=== PATIENT | female | born 1980 | race African-American/Black ===

== ENCOUNTER 2018-02-22 10:54 | Emergency (ER) | payer SELFPAY ==
[~2018-02-22] VITALS: Ht 170.2 cm; Wt 105.2 kg
[~2018-02-22 10:54] MED LIST: ACYC200C4 PO; ALBU2.5V14 IH; IPRA14.7 IH
[2018-02-22 11:10] VITALS: BP 149/75
--- NOTE | 2018-02-22 11:33 | PHYS DOC ---
Past Medical History Past Medical History: No Pertinent History Additional Past Medical Histor: genital herpes Past Surgical History: Appendectomy Additional Past Surgical Histo: tubal ligation Alcohol Use: None Drug Use: None Adult General Chief Complaint Chief Complaint: BACK PAIN OR INJURY HPI HPI Patient is a 37 year old female who presents to the emergency room with complaints of mid left back pain after lifting a 22 pound turkey this morning. Patient states she felt a sharp pull in her back at the time. Since then she reports increased pain with respirations, palpation, and movement. She denies any shortness of breath, or recent injury to the area. Patient denies any chest pain numbness and tingling in extremities, or weakness of extremities. States that she took 2 naproxen at approximately 9 AM for relief of her discomfort without any improvement of her symptoms. Patient currently reports her pain is 9 out of 10 on the pain scale. Review of Systems Review of Systems Constitutional: Denies fever or chills [] Respiratory: Denies cough or shortness of breath; see HPI [] Cardiovascular: No additional information not addressed in HPI [] : Denies dysuria or hematuria [] Musculoskeletal: See history of present illness Integument: Denies rash or skin lesions [] Neurologic: Denies headache, focal weakness or sensory changes [] All other systems were reviewed and found to be within normal limits, except as documented in this note. Allergies Allergies Allergies Coded Allergies Type Severity Reaction Last Updated Verified doxycycline Allergy Intermediate N/V 05/24/15 Yes Physical Exam Physical Exam Constitutional: Well developed, well nourished, no acute distress, non-toxic appearance, obese. [] HENT: Normocephalic, atraumatic, bilateral external ears normal, nose normal. [] Eyes: PERRLA, conjunctiva normal, no discharge. [] Lungs & Thorax: Bilateral breath sounds clear to auscultation [] Skin: Warm, dry, no erythema, no rash. [] Back: No bony tenderness; left paraspinal thoracic tenderness to palpation Neurologic: Alert and oriented X 3, normal motor function, normal sensory function, no focal deficits noted. [] Psychologic: Affect normal, judgement normal, mood normal. [] Current Patient Data Vital Signs Vital Signs Date Time Temp Pulse Resp B/P (MAP) Pulse Ox O2 Delivery O2 Flow Rate FiO2 02/22/18 11:10 98.1 63 16 149/75 (99) 100 Room Air 98.1 Lab Values Laboratory Tests Test 02/22/18 11:44 02/22/18 11:57 Urine Collection Type Unknown Urine Color Yellow Urine Clarity Clear Urine pH 7.0 Urine Specific [place] 1.015 Urine Protein Negative mg/dL (NEG-TRACE) Urine Glucose (UA) Negative mg/dL (NEG) Urine Ketones (Stick) Negative mg/dL (NEG) Urine Blood Negative (NEG) Urine Nitrite Negative (NEG) Urine Bilirubin Negative (NEG) Urine Urobilinogen Dipstick 1.0 mg/dL (0.2 mg/dL) Urine Leukocyte Esterase Negative (NEG) Urine RBC Rare /HPF (0-2) Urine WBC Rare /HPF (0-4) Urine Squamous Epithelial Cells Few /LPF Urine Bacteria Few /HPF (0-FEW) POC Urine HCG, Qualitative Hcg negative (Negative) EKG EKG [] Radiology/Procedures Radiology/Procedures [] Course & Med Decision Making Course & Med Decision Making Pertinent Labs and Imaging studies reviewed. (See chart for details) [] Dragon Disclaimer Dragon Disclaimer This electronic medical record was generated, in whole or in part, using a voice recognition dictation system. Departure Departure Impression: Primary Impression: Thoracic back pain Additional Impression: Thoracic back sprain Disposition: 01 HOME, SELF-CARE Condition: STABLE Referrals: DON DUEÑAS MD (PCP) Patient Instructions: Thoracic Strain, [id number] Additional Instructions: Fill prescriptions and use as directed. He may apply ice or heat to sore area for relief of her discomfort. Follow-up with your primary care doctor if symptoms persist. Return to the emergency room if her symptoms worsen. Scripts Naproxen (NAPROXEN) 500 Mg Tablet 500 MG PO PRN PRN for PAIN for 10 Days, #20 TAB 0 Refills Prov: ERLINDA MOCTEZUMA [employer] 02/22/18 Orphenadrine Citrate (ORPHENADRINE CITRATE) 100 Mg Tablet.er 100 MG PO BID PRN for PAIN for 10 Days, #20 TAB.SR 0 Refills Prov: ERLINDA MOCTEZUMA [employer] 02/22/18 Problem Qualifiers Primary Impression: Thoracic back pain Chronicity: acute Back pain laterality: left Qualified Codes: M54.6 - Pain in thoracic spine Additional Impression: Thoracic back sprain Encounter type: initial encounter Qualified Codes: S23.9XXA - Sprain of unspecified parts of thorax, initial encounter ERLINDA MOCTEZUMA [employer] Feb 22, 2018 11:33
[2018-02-22 12:05] LABS: BILIRUBIN,URINE NEGATIVE (NEG); CLARITY,URINE CLEAR; COLOR,URINE YELLOW; NITRITE,URINE NEGATIVE (NEG); PROTEIN,URINE NEGATIVE (NEG-TRACE)
[2018-02-22 12:17] LABS: BACTERIA,URINE FEW /HPF (0-FEW); RBC,URINE RARE /HPF (0-2); SQUAMOUS EPITHELIAL CELL,UR FEW /LPF; WBC,URINE RARE /HPF (0-4)
[2018-02-22] MEDS ORDERED: ORPH100T PO (12:24)
[2018-02-22] MEDS ORDERED: NAPR-514 PO (12:24)
== END 2018-02-22 12:32 | disposition home or self-care (01) ==
LOC: ER 10:54
DX: S23.3XXA Sprain of ligaments of thoracic spine, initial encounter (principal); Z90.89 Acquired absence of other organs; Z98.51 Tubal ligation status; Z88.8 Allergy status to other drugs, medicaments and biological substances; X50.0XXA Overexertion from strenuous movement or load, initial encounter; Y93.89 Activity, other specified; Y92.89 Other specified places as the place of occurrence of the external cause; Y99.8 Other external cause status
CPT/HCPCS: 81001; 81025; 99283

== ENCOUNTER 2018-11-30 18:27 | Emergency (ER) | payer SELFPAY ==
[~2018-11-30] VITALS: Ht 170.2 cm; Wt 105.2 kg
[~2018-11-30 18:27] MED LIST changes: +NAPR-514 PO; +ORPH100T PO
[2018-11-30 20:35] VITALS: BP 131/66
[2018-11-30] MEDS ORDERED: LIDOCAINE 1% PF 2 ML VIAL. INJ ONE (23:00)
[2018-11-30] MEDS ORDERED: CEPH-264 PO (23:13)
[2018-11-30] MEDS ORDERED: MUPI22OI2 TP (23:13)
--- NOTE | 2018-11-30 23:13 | PHYS DOC ---
Past Medical History Past Medical History: No Pertinent History Additional Past Medical Histor: genital herpes Past Surgical History: Appendectomy Additional Past Surgical Histo: tubal ligation Alcohol Use: None Drug Use: None Adult General Chief Complaint Chief Complaint: SKIN RASH/ABSCESS HPI HPI Patient is a 38 year old female who presents to the emergency department with complaints of a red, tender area to her medial right breast for the last 48 hours. Patient denies any drainage from the site. She states she was diagnosed with an infection of her skin in the same area a month ago which she took some antibiotics for and it got better. She currently rates the pain a 8 out of 10 on the pain scale, the pain increases if it is touched, there are no alleviating factors. Review of Systems Review of Systems Constitutional: Denies fever or chills [] HENT: Denies nasal congestion or sore throat [] Respiratory: Denies cough or shortness of breath [] GI: Denies abdominal pain, nausea, vomiting Musculoskeletal: Denies back pain or joint pain [] Integument: see HPI Neurologic: Denies headache, Complete other systems were reviewed and found to be within normal limits, except as documented in this note. Current Medications Current Medications Current Medications Medications (Trade) Dose Ordered Sig/Kailey Start Time Stop Time Status Last Admin Dose Admin Lidocaine HCl (Xylocaine-Mpf 1% 2ml Vial) 4 ml 1X ONCE 11/30/18 23:00 11/30/18 23:01 DC Allergies Allergies Allergies Coded Allergies Type Severity Reaction Last Updated Verified doxycycline Allergy Intermediate N/V 05/24/15 Yes Physical Exam Physical Exam Constitutional: Well developed, well nourished, no acute distress, non-toxic appearance, obese. [] HENT: Normocephalic, atraumatic, bilateral external ears normal, oropharynx moist, no oral exudates, nose normal. [] Eyes: PERRLA, EOMI, conjunctiva normal, no discharge. [] Neck: Normal range of motion, no tenderness, supple, no stridor. [] Cardiovascular:Heart rate regular rhythm Lungs & Thorax: Respirations even and unlabored, no retractions, no respiratory distress Skin: Warm, dry; 5 cm indurated area of erythema, warmth, and tenderness noted to the medial right breast with 2 cm diameter central fluctuant area without drainage consistent with abscess and surrounding cellulitis Back: No tenderness Extremities: No cyanosis, ROM intact Neurologic: Alert and oriented X 3, normal motor function, normal sensory function, no focal deficits noted. [] Psychologic: Affect normal, judgement normal, mood normal. [] Current Patient Data Vital Signs Vital Signs Date Time Temp Pulse Resp B/P (MAP) Pulse Ox O2 Delivery O2 Flow Rate FiO2 11/30/18 20:35 98.5 62 20 131/66 (87) 97 Room Air 98.5 EKG EKG [] Radiology/Procedures Radiology/Procedures [] Course & Med Decision Making Course & Med Decision Making Pertinent Labs and Imaging studies reviewed. (See chart for details) [] Dragon Disclaimer Dragon Disclaimer This electronic medical record was generated, in whole or in part, using a voice recognition dictation system. Departure Departure Impression: Primary Impression: Cellulitis of right breast Additional Impression: Abscess of right breast unrelated to or Disposition: HOME, SELF-CARE Condition: STABLE Referrals: DON DUEÑAS MD (PCP) Patient Instructions: Cellulitis, [id number], Incision and Drainage, Care After Additional Instructions: Fill the prescriptions and use them as directed. You may take Tylenol or ibuprofen as needed for pain. Apply warm moist heat to the area at least 4 times a day and as needed for pain. Follow-up with your primary care doctor if symptoms persist, return to the ER if symptoms worsen. Scripts Mupirocin (MUPIROCIN OINTMENT) 22 Gm Oint...g. 1 JHONNY TP TID for WOUND CARE for 7 Days, #1 TUBE 0 Refills Prov: ERLINDA MOCTEZUMA [employer] 11/30/18 Cephalexin (KEFLEX) 500 Mg Capsule 500 MG PO QID for 7 Days, #28 CAP 0 Refills Prov: ERLINDA MOCTEZUMA [employer] 11/30/18 Incision and Drainage Incision and Drainage : Site: medial right breast Blade Size: 11 Progress The area was an alcohol wipe. 1% lidocaine was injected into the medial right breast, approximately 2 mls, an 11 blade scalpel was used to make a small area over the apex of the fluctuant area, a moderate amount of bloody pus was drained. There was minimal blood loss, no complications, the patient tolerated the procedure well. No gauze wick was placed. Problem Qualifiers ERLINDA MOCTEZUMA [employer] Nov 30, 2018 23:13
== END 2018-11-30 23:41 | disposition home or self-care (01) ==
LOC: ER 18:27
DX: N61.1 Abscess of the breast and nipple (principal); Z88.1 Allergy status to other antibiotic agents
CPT/HCPCS: 10060; 99283